=== PATIENT | female | born 1935 | race Caucasian/White ===

== ENCOUNTER 2017-06-17 06:28 | Day surgery (SDC) | payer MEDICARE, OTHER ==
[~2017-06-17 06:28] MED LIST: Lactated Ringers 1,000 ML IV SCH
[2017-06-17] MEDS ORDERED: Propofol 200 MG/20 ML SDV ONE (07:43)
[2017-06-17 09:16] VITALS: BP 113/56
--- NOTE | 2017-06-17 14:15 | OR ---
PREOPERATIVE DIAGNOSES: 1. Family history of colon cancer. 2. Personal history of hyperplastic polyps. POSTOPERATIVE DIAGNOSIS: Tiny polyp in ascending colon removed, otherwise normal exam. PROCEDURE PROPOSED: Total flexible colonoscopy. PROCEDURE DONE: Total flexible colonoscopy with polypectomy x1. INDICATION: This is an 82-year-old female, who comes in likely for her last colonoscopic exam. She has a family history of colon cancer and also has had a hyperplastic polyp in the past. This will be her third colonoscopic exam, last one being 7 years ago. TECHNIQUE: The patient was brought to the endoscopy suite, placed in left lateral decubitus position. She was sedated per [employer]OL[employer] C[employer] ATTENDANT with propofol. The flexible video colonoscope was then passed transanally and under visualization advanced to the cecum. Examination revealed a normal cecal area, but in the ascending colon there was a tiny polyp removed with 2 bites of the cold biopsy forceps and submitted for pathologic examination. This appeared to be likely a small hyperplastic polyp. The transverse, descending, sigmoid, and rectal colon otherwise was essentially unremarkable. The scope was then withdrawn. The patient tolerated procedure well. FINAL IMPRESSION: 1. Ascending colon polyp x1 removed. 2. Family history of colon cancer. PLAN: I feel that at her age of 82, now this should be the last time that she needs a colonoscopy. She will be sent a letter with pathology report. SCM: 06/17/2017 08:16:11 MODL: 06/17/2017 14:08:59 /[id number]
--- NOTE | 2017-06-27 10:10 | LETTER ---
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 It was not very large and I do not feel that at your age you need any future exams. If you have any further question regarding this, feel free to call. Respectfully,
== END 2017-06-17 09:22 | disposition home or self-care (01) ==
LOC: VM.SDS 06:28
PROVIDERS: ATTEND Surgery
DX: Z12.11 Encounter for screening for malignant neoplasm of colon (principal); D12.2 Benign neoplasm of ascending colon; Z87.19 Personal history of other diseases of the digestive system; Z80.0 Family history of malignant neoplasm of digestive organs; E03.4 Atrophy of thyroid (acquired); Z79.82 Long term (current) use of aspirin; Z79.899 Other long term (current) drug therapy; Z88.2 Allergy status to sulfonamides; Z88.8 Allergy status to other drugs, medicaments and biological substances; Z98.49 Cataract extraction status, unspecified eye; Z96.1 Presence of intraocular lens
CPT/HCPCS: 00810; 45380; J2704; J7120; 88305

== ENCOUNTER 2020-07-27 08:45 | Emergency (ER) | payer MEDICARE, OTHER ==
--- NOTE | 2020-07-27 09:30 | EDM.PDOC ---
ED HPI GENERAL MEDICAL PROBLEM - General Chief Complaint: General Stated Complaint: COVID SYMPTOMS Time Seen by Provider: 07/27/20 09:10 Source of Information: Reports: Patient, RN, RN Notes Reviewed History Limitations: Reports: No Limitations - History of Present Illness INITIAL COMMENTS - FREE TEXT/NARRATIVE: Patient presents to ER with complaint of right-sided chest pain upon inspiration. Patient states she began with chills on Saturday and Saturday, late Saturday evening began having pain with inspiration on the right anterior chest under the clavicle. Patient states she took Advil for this. On Saturday a.m. she continued to have pain on inspiration which had moved throughout the right anterior chest. States she had a temperature of 100.2. She states the pain decreased as the day went on. Patient did take Advil last night, awoke at 01 100 in a sweat. She called the ER at 330, and was told she could probably follow-up in the clinic. Clinic recommended this a.m. that she go to the ER. Patient denies any travel, or close contact with [facility]. States no known contact. Admits to decreased appetite. Denies shortness of breath, nausea, vomiting, diarrhea, loss of taste or smell. Onset: Gradual - Related Data Allergies Allergy/AdvReac Type Severity Reaction Status Date / Time epinephrine Allergy Syncope Verified 07/27/20 08:59 Sulfa (Sulfonamide Allergy Rash Verified 07/27/20 08:59 Antibiotics) Home Meds: Home Meds Aspirin [Halfprin] 81 mg PO DAILY 06/13/17 [History] Ibuprofen 400 mg PO Q4H PRN 06/13/17 [History] Levothyroxine [Synthroid] 50 mcg PO DAILY 06/13/17 [History] Multivit with Minerals/Lutein [Vision Plus Lutein Vitamin] 2 cap PO DAILY 06/13/17 [History] Metoprolol Succinate 12.5 mg PO DAILY 07/27/20 [History] Past Medical History HEENT History: Reports: Hard of Hearing Cardiovascular History: Reports: Hypertension Respiratory History: Reports: Other (See Below) Other Respiratory History: cough. 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 balance problem. chronic fatigue Neurological History: Reports: None Psychiatric History: Reports: None Endocrine/Metabolic History: Reports: Hypothyroidism, Other (See Below) Other Endocrine/Metabolic History: hyperglycemia Hematologic History: Reports: None Immunologic History: Reports: None Oncologic (Cancer) History: Reports: None Other Dermatologic History: Planter's wart - Past Surgical History HEENT Surgical History: Reports: Cataract Surgery, Tonsillectomy GI Surgical History: Reports: Colonoscopy Dermatological Surgical History: Reports: None Social & Family History - Tobacco Use Smoking Status *Q: Unknown Ever Smoked ED ROS GENERAL - Review of Systems Review Of Systems: Comprehensive ROS is negative, except as noted in HPI. ED EXAM, GENERAL - Physical Exam Exam: See Below Exam Limited By: No Limitations General Appearance: Alert, WD/WN, No Apparent Distress Eye Exam: Bilateral Eye: EOMI, Normal Inspection Ears: Normal External Exam, Hearing Grossly Normal Nose: Normal Inspection Throat/Mouth: Normal Inspection, Normal Voice, No Airway Compromise Head: Atraumatic, Normocephalic Neck: Normal Inspection, Supple, Non-Tender, Full Range of Motion Respiratory/Chest: No Respiratory Distress, Lungs Clear, Normal Breath Sounds, No Accessory Muscle Use, Chest Non-Tender Cardiovascular: Normal Peripheral Pulses, Regular Rate, Rhythm, No Edema, No Gallop, No JVD, No Murmur, No Rub Peripheral Pulses: 2+: Radial (L), Radial (R) GI/Abdominal: Normal Bowel Sounds, Soft, Non-Tender (Female) Exam: Deferred Rectal (Female) Exam: Deferred Back Exam: Normal Inspection, Full Range of Motion Extremities: Normal Inspection, Normal Range of Motion, Non-Tender, No Pedal Edema, Normal Capillary Refill Neurological: Alert, Oriented, CN II-XII Intact, Normal Cognition, Normal Gait, Normal Reflexes, No Motor/Sensory Deficits Psychiatric: Normal Affect, Normal Mood Skin Exam: Warm, Dry, Intact, Normal Color, No Rash Lymphatic: No Adenopathy Course - Vital Signs Last Recorded V/S: Last Vital Signs Temp 97.2 F 07/27/20 08:45 Pulse 89 07/27/20 09:32 Resp 16 07/27/20 08:45 BP 145/65 H 07/27/20 09:32 Pulse Ox 98 07/27/20 08:45 - Orders/Labs/Meds Orders: Active Orders 24 hr Category Date Time Status EKG Documentation Completion [RC] STAT Care 07/27/20 09:06 Active Labs: Laboratory Tests 07/27/20 07/27/20 07/27/20 Range/Units 09:20 09:20 09:20 WBC 7.9 (4.0-10.0) x10^3/uL RBC 3.98 L (4.00-5.50) x10^6/uL Hgb 12.8 (12.0-16.0) g/dL Hct 38.6 (33.0-47.0) % MCV 97.0 H (78.0-93.0) fL MCH 32.2 H (26.0-32.0) pg MCHC 33.2 (32.0-36.0) g/dL RDW Coeff of Wyatt 13.4 (10.0-15.0) % Plt Count 160 (130-400) x10^3/uL Neut % (Auto) 65.0 (50.0-80.0) % Lymph % (Auto) 20.1 L (25.0-50.0) % [place] % (Auto) 12.8 H (2.0-11.0) % Eos % (Auto) 1.8 (0.0-4.0) % Baso % (Auto) 0.3 (0.2-1.2) % D-Dimer, Quantitative 0.41 (<=0.58) mg/LFEU Sodium 142 (136-145) mmol/L Potassium 3.2 L (3.5-5.1) mmol/L Chloride 104 (98-107) mmol/L Carbon Dioxide 29 (21-32) mmol/L Anion Gap 12.2 (10-20) mmol/L BUN 13 (7-18) mg/dL Creatinine 1.1 H (0.55-1.02) mg/dL Est Cr Clr Drug Dosing TNP Estimated GFR (MDRD) 47 Glucose 151 H (74-106) mg/dL Calcium 9.2 (8.5-10.1) mg/dL Corrected Calcium 9.20 (8.5-10.1) mg/dL Total Bilirubin 0.7 (0.2-1.0) mg/dL AST 18 (15-37) U/L ALT 19 (14-59) U/L Alkaline Phosphatase 70 (46-116) U/L Troponin I < 0.017 (<=0.056) ng/mL Total Protein 7.8 (6.4-8.2) g/dL Albumin 4.0 (3.4-5.0) g/dL Globulin 3.8 Albumin/Globulin Ratio 1.05 - Radiology Interpretation Free Text/Narrative:: Chest xray: INcreased bibasilar reticulation suggesting potential underlying interstitial lung disease. See rad report Departure - Departure Time of Disposition: 10:38 Disposition: Home, Self-Care 01 Condition: Good Clinical Impression: Pleurisy - Discharge Information *PRESCRIPTION DRUG MONITORING PROGRAM REVIEWED*: No *COPY OF PRESCRIPTION DRUG MONITORING REPORT IN PATIENT STANLEY: No Instructions: Pleurisy, [id number] Referrals: Bijal Bravo MD [Primary Care Provider] - Forms: ED Department Discharge Additional Instructions: May use heat to the chest and back as tolerated May use Tylenol and/or Ibuprofen as directed for pain/fever Follow up with [facility] for Covid testing today Return to the ER with any worsening of symptoms Sepsis Event Note (ED) - Evaluation Sepsis Screening Result: No Definite Risk - Focused Exam Vital Signs: Vital Signs Temp Pulse Resp BP Pulse Ox 07/27/20 09:32 89 145/65 H 07/27/20 08:45 97.2 F 108 H 16 160/68 H 98 - My Orders Last 24 Hours: My Active Orders 07/27/20 09:06 EKG Documentation Completion [RC] STAT - Assessment/Plan Last 24 Hours: My Active Orders 07/27/20 09:06 EKG Documentation Completion [RC] STAT
[2020-07-27 09:32] VITALS: BP 145/65; PULSE 89
[2020-07-27 09:51] LABS: CHLORIDE,CL 104 mmol/L (98-107); SODIUM,NA 142 mmol/L (136-145)
[2020-07-27 09:53] LABS: ANION GAP 12.2 mmol/L (10-20)
--- NOTE | 2020-07-27 09:57 | CR ---
[id number] RAD/RAD Chest PA And Lateral EXAM: FRONTAL AND LATERAL CHEST INDICATION: CHEST PAIN. COMPARISON: November 27, 2007. DISCUSSION: Increased bibasilar peripheral reticulation. Stable bilateral apical scarring. Hyperaeration compatible with underlying COPD. No consolidation is identified. Normal heart size. IMPRESSION: 1. Increased bibasilar reticulation suggesting potential underlying interstitial lung disease. Chest CT without contrast may be useful for further evaluation. He Dickerson MD 07/27/20 [id number] Thank you for allowing us to participate in the care of your patient.
== END 2020-07-27 10:51 | disposition home or self-care (01) ==
LOC: VM.ED 08:45
DX: R09.1 Pleurisy (principal); I10 Essential (primary) hypertension; E03.9 Hypothyroidism, unspecified; Z79.899 Other long term (current) drug therapy; Z88.8 Allergy status to other drugs, medicaments and biological substances; Z88.2 Allergy status to sulfonamides; Z79.82 Long term (current) use of aspirin
CPT/HCPCS: 36415; 71046; 80053; 84484; 85025; 85379; 93005; 99283; 99284-25

== ENCOUNTER 2023-04-29 11:42 | Emergency (ER) | payer MEDICARE, OTHER ==
[2023-04-29 11:59] VITALS: BP 167/66; PULSE 89
== END 2023-04-29 12:16 | disposition home or self-care (01) ==
LOC: VM.ED 11:42
DX: S81.811A Laceration without foreign body, right lower leg, initial encounter (principal); E03.9 Hypothyroidism, unspecified; I10 Essential (primary) hypertension; Z88.4 Allergy status to anesthetic agent; Z88.2 Allergy status to sulfonamides; Z79.82 Long term (current) use of aspirin; Z79.899 Other long term (current) drug therapy; Z96.641 Presence of right artificial hip joint; W10.9XXA Fall (on) (from) unspecified stairs and steps, initial encounter
CPT/HCPCS: 99282